=== PATIENT | female | born 1940 | race Caucasian/White ===

== ENCOUNTER 2017-04-03 18:40 | Inpatient (IN) | payer MEDICAID, MEDICARE, OTHER ==
[~2017-04-03] VITALS: Ht 152.4 cm; Wt 53.1 kg
[~2017-04-03 18:40] MED LIST: ASPI-650 PO; ENAL2.5T PO; METO25TA35 PO; OXYC5CAP2 PO; PARO10TA3 PO
[2017-04-03] MEDS ORDERED: SODIUM CHLORIDE FLUSH 10ML SYR IVF ONE ×2 (19:00→19:30)
[2017-04-03] MEDS ORDERED: ASPIRIN 81 MG TABLET CHEW PO ONE (19:00)
[2017-04-03 19:13] LABS: HEMATOCRIT 43.9 % (34.6-47.8); HEMOGLOBIN 14.8 g/dL (11.7-16.4); WHITE BLOOD COUNT 8.4 x10^3/uL (3.4-10)
[2017-04-03 19:25] LABS: ASPARTATE AMINO TRANSFERASE 18 U/L (15-37); BLOOD UREA NITROGEN 25 mg/dL (7-18)
[2017-04-03] MEDS ORDERED: NITROGLYCERIN SINGLE TAB 0.4 MG SL PRN (19:30)
[2017-04-03] MEDS ORDERED: ASPIRIN 81 MG TABLET CHEW ONE (19:31)
[2017-04-03] MEDS ORDERED: NITROGLYCERIN SINGLE TAB 0.4 MG SL ONE (19:31)
[2017-04-03 19:39] LABS: IS PT STATUS REG ER OR PRE ER? YES
[2017-04-03] MEDS ORDERED: MORPHINE SULFATE 4 MG/ML, 1ML IVPush ONE ×2 (20:00→22:00)
[2017-04-03] MEDS ORDERED: morphine SULFATE 10 MG/ML, 1ML ONE ×2 (20:01→21:48)
[2017-04-03] MEDS ORDERED: OMNIPAQUE 350 MG/ML, 100ML BOTTLE ONE (20:55)
[2017-04-03] MEDS ORDERED: ASPIRIN 325 MG TABLET EC PO SCH (22:00)
[2017-04-03] MEDS ORDERED: POLYETHYLENE GLYCOL 17 GM PACKET PO PRN (22:30)
[2017-04-03] MEDS ORDERED: BISACODYL 10 MG SUPP PR PRN (22:30)
[2017-04-03] MEDS ORDERED: NITROGLYCERIN 0.4 MG BOTTLE (25 TABS) SL PRN (22:30)
[2017-04-03] MEDS: HEPARIN 5,000 UNITS/ML, 1ML SQ SCH (22:30)
[2017-04-03] MEDS ORDERED: ACETAMINOPHEN 325 MG TABLET PO PRN (22:30)
[2017-04-03] MEDS: NICOTINE 7 MG/24 HR PATCH.TD24 TD SCH (22:30)
[2017-04-03] MEDS: ENALAPRIL 2.5MG TABLET PO SCH (22:57)
[2017-04-04] MEDS ORDERED: morphine SULFATE 10 MG/ML, 1ML ONE (00:02)
[2017-04-04] MEDS ORDERED: HEPARIN 5,000 UNITS/ML, 1ML ONE ×2 (00:03→08:03)
[2017-04-04] MEDS: SODIUM CHLORIDE FLUSH 10ML SYR IVF SCH ×3 (00:23→21:59)
[2017-04-04] MEDS: morphine SULFATE 10 MG/ML, 1ML IVPush PRN ×2 (00:26→21:58)
[2017-04-04 01:33] LABS: IS PT STATUS REG ER OR PRE ER? YES
[2017-04-04 06:02] LABS: HEMATOCRIT 40.5 % (34.6-47.8); HEMOGLOBIN 13.8 g/dL (11.7-16.4); WHITE BLOOD COUNT 5.6 x10^3/uL (3.4-10)
[2017-04-04] MEDS: HEPARIN 5,000 UNITS/ML, 1ML SQ SCH ×2 (06:30→16:25)
[2017-04-04 06:42] LABS: BLOOD UREA NITROGEN 22 mg/dL (7-18)
[2017-04-04 07:00] LABS: ASPARTATE AMINO TRANSFERASE 431 U/L (15-37)
[2017-04-04 07:06] LABS: IS PT STATUS REG ER OR PRE ER? YES
[2017-04-04] MEDS ORDERED: ONDANSETRON 2MG/ML, 2ML ONE (07:14)
[2017-04-04] MEDS: ONDANSETRON 2MG/ML, 2ML IVPush PRN (07:21)
[2017-04-04] MEDS ORDERED: REGADENOSON 0.4 MG/5 ML SYRINGE ONE (08:21)
[2017-04-04] MEDS ORDERED: ASPIRIN 325 MG TABLET EC ONE (08:30)
[2017-04-04] MEDS ORDERED: SENNA/DOCUSATE TABLET ONE (08:30)
[2017-04-04] MEDS: PAROXETINE 10 MG TABLET PO SCH (08:33)
[2017-04-04] MEDS: ENALAPRIL 2.5MG TABLET PO SCH ×2 (08:33→21:59)
[2017-04-04] MEDS: ASPIRIN 325 MG TABLET EC PO SCH (08:34)
[2017-04-04] MEDS ORDERED: SENNA/DOCUSATE TABLET PO SCH (09:00)
[2017-04-04] MEDS: SODIUM CHLORIDE 0.9% 1,000 ML IV SCH ×2 (09:40→22:02)
[2017-04-04 13:54] VITALS: BP 139/68
[2017-04-04 15:56] LABS: DAU SCREEN DISCLAIMER
[2017-04-04] MEDS: METHOCARBAMOL 500 MG TABLET PO SCH ×2 (16:26→21:59)
[2017-04-04 16:34] VITALS: BP 139/68
[2017-04-04 20:00] VITALS: BP 142/72
[2017-04-05] MEDS: morphine SULFATE 10 MG/ML, 1ML IVPush PRN ×2 (00:58→04:22)
[2017-04-05] MEDS: HEPARIN 5,000 UNITS/ML, 1ML SQ SCH ×2 (01:21→08:52)
[2017-04-05] MEDS: NICOTINE 7 MG/24 HR PATCH.TD24 TD SCH (01:21)
[2017-04-05 02:00] VITALS: BP 140/73
[2017-04-05] MEDS: ONDANSETRON 2MG/ML, 2ML IVPush PRN (05:16)
[2017-04-05] MEDS: METHOCARBAMOL 500 MG TABLET PO SCH ×3 (05:16→16:00)
[2017-04-05 05:31] LABS: HEMATOCRIT 37.8 % (34.6-47.8); HEMOGLOBIN 12.8 g/dL (11.7-16.4); WHITE BLOOD COUNT 6.1 x10^3/uL (3.4-10)
[2017-04-05 05:56] LABS: BLOOD UREA NITROGEN 20 mg/dL (7-18)
[2017-04-05 06:00] LABS: ASPARTATE AMINO TRANSFERASE 171 U/L (15-37)
[2017-04-05 06:09] VITALS: BP 147/88
[2017-04-05 06:56] VITALS: BP 148/76
[2017-04-05] MEDS: SODIUM CHLORIDE FLUSH 10ML SYR IVF SCH (08:52)
[2017-04-05] MEDS: SODIUM CHLORIDE 0.9% 1,000 ML IV SCH (08:52)
[2017-04-05] MEDS: ASPIRIN 325 MG TABLET EC PO SCH (08:53)
[2017-04-05] MEDS: PAROXETINE 10 MG TABLET PO SCH (08:53)
[2017-04-05] MEDS: ENALAPRIL 2.5MG TABLET PO SCH (08:54)
[2017-04-05] MEDS ORDERED: SENNA/DOCUSATE TABLET PO SCH (09:00)
[2017-04-05] MEDS ORDERED: KETOROLAC 30 MG/1 ML IVPush SCH (12:00)
[2017-04-05] MEDS ORDERED: METH500T7 PO (12:04)
[2017-04-05] MEDS ORDERED: NICO-485 TD (12:04)
[2017-04-05] MEDS ORDERED: ASPI-650 PO (12:04)
[2017-04-05] MEDS ORDERED: ENAL2.5T PO (12:04)
[2017-04-05] MEDS ORDERED: FLU VACC QS2017-18 (36MOS+) UP/PF 0.5 ML IM-VACC ONE (14:30)
[2017-04-05 14:38] VITALS: BP 146/73
[2017-04-05] MEDS ORDERED: ENALAPRIL 2.5MG TABLET PO SCH (21:00)
[2017-04-05] MEDS ORDERED: ATORVASTATIN 20 MG TABLET PO SCH (21:00)
== END 2017-04-05 16:40 | disposition home or self-care (01) | DRG 74 ==
LOC: ED 21:14 → EDIP 21:31 → 4WST 04-04 13:27 → DCLOUNGE 04-05 16:25
PROVIDERS: ADMIT Hospitalist; ATTEND Hospitalist
DX: G90.8 Other disorders of autonomic nervous system (principal); I11.9 Hypertensive heart disease without heart failure; I35.1 Nonrheumatic aortic (valve) insufficiency; F17.210 Nicotine dependence, cigarettes, uncomplicated; M94.0 Chondrocostal junction syndrome [Tietze]; R07.81 Pleurodynia; R07.89 Other chest pain; I25.2 Old myocardial infarction; I37.1 Nonrheumatic pulmonary valve insufficiency; I77.819 Aortic ectasia, unspecified site; Z79.82 Long term (current) use of aspirin; Z82.49 Family history of ischemic heart disease and other diseases of the circulatory system; Z90.49 Acquired absence of other specified parts of digestive tract; Z88.0 Allergy status to penicillin
CPT/HCPCS: 36415; 71010; 71275; 76700; 78452; 80053; 80061; 80074; 80307; 83880; 84443; 84484; 85025; 85379; 85610; 85730; 90686; 93005; 93017; 93306; 93880; 96374; 96375; J1644; J1885; J2405; J2785; Q9967; A9502; C9898; G0479; J2270; J7030

== ENCOUNTER 2017-05-25 13:46 | Emergency (ER) | payer MEDICARE, OTHER ==
[~2017-05-25] VITALS: Ht 152.4 cm; Wt 55.0 kg
[~2017-05-25 13:46] MED LIST changes: +METH500T7 PO; +NICO-485 TD
[2017-05-25 15:30] VITALS: BP 131/70
== END 2017-05-25 15:37 | disposition home or self-care (01) ==
LOC: ED 15:00
DX: S30.0XXA Contusion of lower back and pelvis, initial encounter (principal); I10 Essential (primary) hypertension; Z96.641 Presence of right artificial hip joint; Z88.0 Allergy status to penicillin; F17.200 Nicotine dependence, unspecified, uncomplicated; W19.XXXA Unspecified fall, initial encounter; Y93.89 Activity, other specified; Y99.8 Other external cause status; Y92.099 Unspecified place in other non-institutional residence as the place of occurrence of the external cause
CPT/HCPCS: 72190; 99284

== ENCOUNTER 2018-02-06 19:41 | Emergency (ER) | payer MEDICARE, OTHER ==
[~2018-02-06] VITALS: Ht 149.9 cm; Wt 60.6 kg
[2018-02-06 20:46] VITALS: BP 174/84
== END 2018-02-06 21:01 | disposition home or self-care (01) ==
LOC: ED 20:40
DX: S52.615A Nondisplaced fracture of left ulna styloid process, initial encounter for closed fracture (principal); S52.502A Unspecified fracture of the lower end of left radius, initial encounter for closed fracture; W07.XXXA Fall from chair, initial encounter; Y93.89 Activity, other specified; Y99.8 Other external cause status; Y92.009 Unspecified place in unspecified non-institutional (private) residence as the place of occurrence of the external cause
CPT/HCPCS: 29125; 99284

== ENCOUNTER 2018-12-23 08:46 | Emergency (ER) | payer MEDICARE, OTHER ==
[~2018-12-23] VITALS: Ht 149.9 cm; Wt 61.0 kg
[2018-12-23] MEDS ORDERED: ASPIRIN 81 MG TABLET CHEW PO ONE (09:30)
[2018-12-23 09:46] LABS: BASOPHILS # (AUTO) 0.06 x10^3/uL (0-0.1); BASOPHILS % (AUTO) 1 % (0-1); EOSINOPHILS # (AUTO) 0.48 x10^3/uL (0-0.4); EOSINOPHILS % (AUTO) 4 % (1-7); LYMPHOCYTES # (AUTO) 1.76 x10^3/uL (1-3.4); LYMPHOCYTES % (AUTO) 16 % (22-44); MD NO; MEAN CORPUSCULAR HEMOGLOBIN 30.9 pg (27.0-34.8); MEAN CORPUSCULAR HGB CONC 33.1 g/dL (32.4-35.8); MEAN CORPUSCULAR VOLUME 93.3 fL (80-100); MONOCYTES # (AUTO) 0.78 x10^3/uL (0.2-0.8); MONOCYTES % (AUTO) 7 % (2-9); NEUTROPHILS # (AUTO) 7.81 x10^3/uL (1.8-6.8); NEUTROPHILS % (AUTO) 72 % (42-75); PLATELET COUNT 212 x10^3/uL (130-400); RED BLOOD COUNT 4.47 x10^6/uL (3.82-5.3); RED CELL DISTRIBUTION WIDTH 15.4 % (9.6-15.2)
[2018-12-23 09:56] LABS: ANION GAP 4 mmol/L (5-15); CALCIUM 8.5 mg/dL (8.5-10.1); CHLORIDE 110 mmol/L (98-107)
[2018-12-23] MEDS ORDERED: ENAL20TA PO (09:56)
--- NOTE | 2018-12-23 09:59 | NUR ---
PT STATES SHE FELT WEAK YESTERDAY. PT RAN OUT OF BLOOD PRESSURE [facility] 3 WEEKS AGO AND HASNT BEEN ABLE TO GET TO THE [facility] FOR A REFILL. BP STABLE. PT RESTING COMFORTABLE. WAITING FOR MD ORDERS.
[2018-12-23 10:03] LABS: ALANINE AMINOTRANSFERASE 12 U/L (12-78); ALKALINE PHOSPHATASE 81 U/L (45-117); BILIRUBIN,TOTAL 0.7 mg/dL (0.2-1.0); CREATININE 0.75 mg/dL (0.55-1.02); TOTAL PROTEIN 6.2 g/dL (6.4-8.2); TROPONIN I < 0.015 ng/mL (0.000-0.045)
[2018-12-23] MEDS ORDERED: ASPIRIN 81 MG TABLET CHEW ONE (10:29)
[2018-12-23 11:02] LABS: MICROSCOPIC AUTO
[2018-12-23 11:09] LABS: CULTURE INDICATED? YES
[2018-12-23 11:16] VITALS: BP 125/69
--- NOTE | 2018-12-23 11:16 | NUR ---
Patient/Caregiver given discharge instructions and they have confirmed that they understand the instructions. Patient ambulatory with steady gait.
== END 2018-12-23 11:18 | disposition home or self-care (01) ==
LOC: ED 09:52
DX: I10 Essential (primary) hypertension (principal); R07.89 Other chest pain
CPT/HCPCS: 36415; 71045; 80053; 81001; 84484; 85025; 87077; 87086; 87186; 93005; 99284